=== PATIENT | female | born 1995 | race Caucasian/White ===

== ENCOUNTER 2021-01-14 22:20 | Emergency (ER) | payer OTHER ==
[~2021-01-14] VITALS: Ht 165.1 cm; Wt 91.0 kg
[2021-01-14] MEDS ORDERED: ACETAMINOPHEN 325MG TABLET PO ONE (23:15)
[2021-01-14] MEDS ORDERED: TRAMADOL 50MG TABLET PO ONE (23:15)
[2021-01-14] MEDS ORDERED: ONDANSETRON 4MG ODT PO ONE (23:45)
[2021-01-15] MEDS ORDERED: MORPHINE SULFATE 10 MG/ML CPJ IM ONE (00:30)
[2021-01-15] MEDS ORDERED: IBUP-2029 MT (03:29)
[2021-01-15] MEDS ORDERED: METH-773 MT (03:29)
[2021-01-15 03:30] VITALS: BP 108/57
== END 2021-01-15 03:40 | disposition home or self-care (01) ==
LOC: ER 22:20
DX: S06.9X9A Unspecified intracranial injury with loss of consciousness of unspecified duration, initial encounter (principal); S16.1XXA Strain of muscle, fascia and tendon at neck level, initial encounter; E89.0 Postprocedural hypothyroidism; V43.62XA Car passenger injured in collision with other type car in traffic accident, initial encounter; Y93.89 Activity, other specified; Y92.488 Other paved roadways as the place of occurrence of the external cause
CPT/HCPCS: 70450; 72125; 81025; 96372; 99285; J2270; Q0162